=== PATIENT | female | born 1995 | race Two or more races ===

== ENCOUNTER 2024-02-24 19:05 | Emergency (ER) | payer OTHER ==
[~2024-02-24] VITALS: Ht 162.6 cm; Wt 59.0 kg
[2024-02-24] MEDS ORDERED: SPRINTEC 28 DA1 EACH PO (19:15)
[2024-02-24] MEDS ORDERED: KETOROLAC TROMETHAMINE 30 MG VIAL IM STA (19:39)
[2024-02-24] MEDS ORDERED: ORPHENADRINE CITRATE 30 MG/ML AMPUL IM STA (19:40)
[2024-02-24] MEDS ORDERED: DICLOFENAC POTA50 MG PO (19:49)
[2024-02-24] MEDS ORDERED: CYCLOBENZAPRINE10 MG PO (19:49)
== END 2024-02-24 20:03 | disposition home or self-care (01) ==
LOC: ER 19:05
DX: M62.830 Muscle spasm of back (principal); Z91.013 Allergy to seafood